=== PATIENT | male | born 2000 | race Hispanic/Latino ===

== ENCOUNTER 2018-08-18 22:21 | Emergency (ER) | payer OTHER | END 2018-08-18 22:49 | LOC: EDH 22:21 | DX: S01.81XD Laceration without foreign body of other part of head, subsequent encounter (principal); Z72.0 Tobacco use; F14.90 Cocaine use, unspecified, uncomplicated; F12.90 Cannabis use, unspecified, uncomplicated; X58.XXXD Exposure to other specified factors, subsequent encounter ==